=== PATIENT | male | born 1930 | race Caucasian/White ===

== ENCOUNTER 2021-10-30 17:33 | Emergency (ER) | payer MEDICARE, OTHER ==
[~2021-10-30] VITALS: Ht 160 cm; Wt 79.4 kg
[2021-10-30 17:48] VITALS: BP 146/70
[2021-10-30] MEDS ORDERED: NACL 0.9% 1,000 ML IV ONE (17:50)
--- NOTE | 2021-10-30 17:56 | NUR ---
89 y/o male biba from home, family called [facility] stating pt is more altered than usual, last night pt was a&ox4 last known well was 10/29/21 1900, pt is currently a&ox1 to name only, slov[place] speaking. denies pain at this time. speech is gargled and slow. accucheck en route was 187. skin is pink/warm/dry. lungs clear bl. family denies any fever, cp, sob, or cough at this time. pt states pain is 0/10 at this time. patient positioned for comfort. hob elevated. bed down. ermd made aware of pt. pmh: dm2, stroke, ventricular pacemaker nka
--- NOTE | 2021-10-30 17:56 | NUR ---
Note undone in EDM - 10/30/21 at 1933 by [facility] 89 y/o male biba from home, family called sameera stating pt is more altered than usual, last night pt was a&ox4 last known well was 10/29/21 1900, pt is currently a&ox1 to name only, senegalese speaking. denies pain at this time. speech is gargled and slow. accucheck en route was 187. skin is pink/warm/dry. a&o x4 with even and steady gait. lungs clear bl. family denies any fever, cp, sob, or cough at this time. pt states pain is 0/10 at this time. patient positioned for comfort. hob elevated. bed down. ermd made aware of pt. pmh: dm2, stroke, ventricular pacemaker nka
[2021-10-30 18:41] LABS: BASOPHILS % (AUTO) 0.2 % (0.0-2.0); EOSINOPHILS % (AUTO) 0.6 % (0.0-4.0); HEMATOCRIT 38.8 % (36-52); HEMOGLOBIN 12.9 g/dL (12.0-18.0); LYMPHOCYTES # (AUTO) 1.1 K/uL (2.0-11.5); LYMPHOCYTES % (AUTO) 20.9 % (20.5-51.1); MEAN CORPUSCULAR HEMOGLOBIN 30 pg (27-31); MEAN CORPUSCULAR HGB CONC 33 g/dL (33-37); MEAN CORPUSCULAR VOLUME 89.3 fL (80-94); MONOCYTES # (AUTO) 0.6 K/uL (0.8-1.0); NEUTROPHILS # (AUTO) 3.6 K/uL (1.8-7.7); NEUTROPHILS % (AUTO) 66.3 % (42.2-75.2); PLATELET COUNT (AUTO) 120 K/uL (140-450); RED BLOOD CELL COUNT(AUTO) 4.34 MIL/uL (4.20-6.10); RED CELL DISTRIBUTION WIDTH 14.8 % (11.6-13.7); WHITE BLOOD COUNT (AUTO) 5.4 K/uL (4.8-10.8)
[2021-10-30 19:17] LABS: ALBUMIN 3.4 g/dL (3.4-5.0); ANION GAP 13.1 (8-16); ASPARTATE AMINOTRANSFERASE 16 U/L (15-37); CHLORIDE 97 mmol/L (98-107); CREATININE 0.8 mg/dL (0.6-1.3); GLUCOSE 183 mg/dL (74-106); LIPASE 241 U/L (73-393); POTASSIUM 4.1 mmol/L (3.5-5.1); SODIUM SERUM 132 mmol/L (136-145); TOTAL BILIRUBIN 0.5 mg/dL (0.0-1.0); UREA NITROGEN, BLOOD 10 mg/dL (7-18)
[2021-10-30] MEDS ORDERED: DOXYCYCLINE 100 MG in DEXTROSE 5% 100 ML IV SCH (19:30)
--- NOTE | 2021-10-30 19:55 | NUR ---
DAUGHTER MONICA [phone] CALLED REQUESTING UPDATE
[2021-10-30] MEDS ORDERED: cefTRIAXone 1,000 MG VIAL ONE (19:59)
[2021-10-30] MEDS ORDERED: DOXYCYCLINE 100 MG VIAL IV ONE (19:59)
--- NOTE | 2021-10-30 20:00 | NUR ---
REPOSITIONED FOR COMFORT
--- NOTE | 2021-10-30 23:00 | NUR ---
INCONTINENT OF LARGE AMOUNT OF URINE. LINENS CHANGE, REPOSITIONED FOR COMFORT
--- NOTE | 2021-10-31 | NUR ---
LISAG TO GET OUT OF BED, ASSISTED BACK IN, MADE COMFORTABLE
[2021-10-31 00:42] VITALS: BP 133/79
--- NOTE | 2021-10-31 00:54 | NUR ---
[facility] AT BEDSIDE FOR TRANSPORT
--- NOTE | 2021-10-31 01:20 | NUR ---
transfered via [facility] to [facility]. chart copied and sent. report was called to sin Helm
== END 2021-10-31 01:20 | disposition short-term general hospital (02) ==
LOC: MED 17:33
DX: U07.1 COVID-19 (principal); R09.02 Hypoxemia; E87.2 Acidosis; E86.0 Dehydration; I10 Essential (primary) hypertension; E78.5 Hyperlipidemia, unspecified
CPT/HCPCS: 36415; 70450; 71045; 80053; 83605; 83690; 84484; 85025; 87040; 87426; 87804; 93005; 96361; 96365; 96368; 99291; J0696; J3490; J7030; J7060; Q0092